=== PATIENT | male | born 1950 | race Caucasian/White ===

== ENCOUNTER 2022-11-24 10:02 | Emergency (ER) | payer MEDICARE, BC ==
[2022-11-24 10:54] VITALS: BP 129/69; PULSE 76
[2022-11-24] MEDS ORDERED: Sodium Chloride 0.9% 10 ML Syringe FLUSH PRN (11:09)
[2022-11-24 11:39] LABS: MEAN CORPUSCULAR HEMOGLOBIN 34.1 pg (31.6-35.5); MEAN CORPUSCULAR HGB CONC 32.3 g/dL (31.6-35.5); MEAN CORPUSCULAR VOLUME 105.8 fL (81.4-99.0); PLATELET COUNT,PLT 281 K/uL (130-375); RED BLOOD CELL COUNT 2.93 M/uL (4.14-5.76)
[2022-11-24 11:55] LABS: BAND ABSOLUTE MAN 0.51 K/uL; BAND PERCENT MAN 3 % (5-11); LYMPHOCYTES ABSOLUTE MAN 3.74 K/uL (0.8-3.3); LYMPHOCYTES PERCENT MAN 22 % (24-44); METAMYELOCYTE ABSOLUTE MAN 0.34 K/uL; METAMYELOCYTE PERCENT MAN 2 %; MONOCYTES ABSOLUTE MAN 1.19 K/uL (0.20-0.90); MONOCYTES PERCENT MAN 7 % (2-6); NEUTROPHILS ABSOLUTE MAN 11.22 K/uL (1.0-7.6); SEG NEUTROPHILS PERCENT MAN 66 % (36-66)
[2022-11-24 11:59] LABS: A/G RATIO 0.8 (1.2-2.2); ALANINE AMINOTRANSFERASE,ALT 30 U/L (12-78); ALKALINE PHOSPHATASE 234 U/L (46-116); ANION GAP 10.8 mmol/L (5.0-14.0); ASPARTATE AMNIOTRANSFERASE,AST 24 U/L (15-37); BILIRUBIN TOTAL 0.3 mg/dL (0.2-1.0); BLOOD UREA NITROGEN,BUN 25 mg/dL (7-18); CALCIUM 9.2 mg/dL (8.5-10.1); CARBON DIOXIDE,CO2 24 mmol/L (21-32); CHLORIDE,CL 106 mmol/L (100-108); CREATININE 1.2 mg/dL (0.8-1.3); EST CRCL DRUG DOSING (CG) 56.61 mL/min; ESTIMATED GFR 64 mL/min (>60); GLUCOSE RANDOM 206 mg/dL (74-106); POTASSIUM,K 4.6 mmol/L (3.6-5.2); PROTEIN TOTAL,TP 6.9 g/dL (6.4-8.2); SODIUM,NA 141 mmol/L (140-148)
[2022-11-24 12:03] LABS: PTT,PARTIAL THROMBOPLSTIN TIME 23.4 sec (21.8-27.3)
[2022-11-24] MEDS ORDERED: Sodium Chloride 0.9% 50 ML IV ONE (13:39)
[2022-11-24] MEDS ORDERED: Sodium Chloride 0.9% 10 ML Syringe FLUSH ONE (13:39)
[2022-11-24] MEDS ORDERED: Iopamidol 612 MG/ML 100 ML Bottle IV SCH (13:45)
== END 2022-11-24 15:14 | disposition home or self-care (01) ==
LOC: JP.ED 10:02
DX: A04.9 Bacterial intestinal infection, unspecified (principal); K92.1 Melena; Z79.84 Long term (current) use of oral hypoglycemic drugs
CPT/HCPCS: 36415; 74177; 80053; 82272; 85025; 85610; 85730; 99284; J3490; Q9967